=== PATIENT | female | born 1975 | race Two or more races ===

== ENCOUNTER 2017-12-16 17:50 | Emergency (ER) | payer OTHER ==
[2017-12-16 17:56] VITALS: BP 146/106
--- NOTE | 2017-12-16 18:22 | ED Physician Documentation ---
History of Present Illness - Stated complaint Stated Complaint: SOA/DIZZY/CARDIAC HX - Chief complaint Chief Complaint: Cardiac - History obtained from History obtained from: Patient - History of Present Illness Timing: How many days ago (3) Pain level max: 0 Pain level now: 0 Improved by: rest Worsened by: exertion - Additonal information Additional information: Patient is a 42-year-old female who presents to the emergency department with feelings of intermittent dyspnea for the past 3 days. No significant shortness of breath, but feeling that she just cannot take a deep breath at times. Has had chest tightness intermittently. States that she has had a constant slight pressure in the center of her chest for 3 days. Denies any nausea or vomiting. No recent travel. No recent surgery. Does not smoke. Is not on control. No history of blood clots in the family. Review of Systems Ten Systems: 10 systems reviewed and negative Constitutional: denies: Fever, Chills Ears: denies: Ear pain Nose: denies: Rhinorrhea / runny nose, Congestion Throat: denies: Sore throat Cardiac: denies: Palpitations Respiratory: denies: Cough, Hemoptysis, Wheezing GI: denies: Abdominal Pain, Nausea, Vomiting, Diarrhea : denies: Dysuria, Now EGA Skin: denies: Rash Musculoskeletal: denies: Neck pain, Back pain Neurologic: denies: Headache PD PAST MEDICAL HISTORY - Past Medical History Past Medical History: Yes Endocrine/Autoimmune: HyPOthyroidism Other Past Medical History: seasonal allergies, SVT - Past Surgical History Past Surgical History: Yes Cardiovascular: Other (ablation for SVT) - Present Medications Home Medications: Ambulatory Orders Medication Instructions Recorded Confirmed Levothyroxine [Synthroid] 25 mcg PO QDAC 12/16/17 12/16/17 Loratadine [Claritin] 12/16/17 Propranolol [Inderal] 10 mg PO BID 12/16/17 12/16/17 - Allergies Allergies/Adverse Reactions: Allergies Allergy/AdvReac Type Severity Reaction Status Date / Time Penicillins Allergy Hives Verified 12/16/17 17:56 - Living Situation Living Situation: reports: With family Living Arrangement: reports: At home PD ED PE NORMAL - Vitals Vital signs reviewed: Yes - General General: Alert and oriented X 3, No acute distress, Well developed/nourished - HEENT HEENT: PERRL, Moist mucous membranes, Pharynx benign - Neck Neck: Supple, no meningeal sign, No JVD, No bruit - Cardiac Cardiac: RRR, No murmur, Strong equal pulses - Respiratory Respiratory: No respiratory distress, Clear bilaterally - Abdomen Abdomen: Soft, Non tender, Non distended - Derm Derm: Warm and dry, No rash - Extremities Extremities: No edema, No calf tenderness / cord - Neuro Neuro: Alert and oriented X 3 - Psych Psych: Normal mood, Normal affect Results - Vitals Vitals: Vital Signs - 24 hr 12/16/17 12/16/17 17:54 19:22 Temperature 36.8 C Heart Rate 76 72 Respiratory 16 17 Rate Blood Pressure 146/106 H O2 Saturation 99 99 Oxygen O2 Source Room air - EKG (time done) 1803 Rate: Rate (enter#) (79) Rhythm: NSR Ward[place]: Normal Intervals: Normal [place] QRS: Normal Ischemia: Normal ST segments - Labs Labs: Laboratory Tests 12/16/17 12/16/17 12/16/17 18:46 18:46 18:46 WBC 8.4 RBC 4.70 Hgb 13.5 Hct 40.9 MCV 87.0 MCH 28.7 MCHC 33.0 RDW 13.9 Plt Count 323 MPV 7.9 Neut # (Auto) 5.3 Lymph # (Auto) 1.9 Chambers # (Auto) 0.9 Eos # (Auto) 0.2 Baso # (Auto) 0.1 Absolute Nucleated RBC 0.00 Nucleated RBC % 0.0 D-Dimer Sodium 136 Potassium 3.6 Chloride 104 Carbon Dioxide 25 Anion Gap 7.0 BUN 14 Creatinine 0.8 Estimated GFR (MDRD) 79 L Glucose 133 H Calcium 9.2 Total Bilirubin 0.4 AST 21 ALT 23 Alkaline Phosphatase 82 Troponin I < 0.04 Total Protein 7.3 Albumin 4.5 Globulin 2.8 Albumin/Globulin Ratio 1.6 Lipase 25 TSH Free T4 12/16/17 12/16/17 18:46 19:04 WBC RBC Hgb Hct MCV MCH MCHC RDW Plt Count MPV Neut # (Auto) Lymph # (Auto) Chambers # (Auto) Eos # (Auto) Baso # (Auto) Absolute Nucleated RBC Nucleated RBC % D-Dimer < 200.0 L Sodium Potassium Chloride Carbon Dioxide Anion Gap BUN Creatinine Estimated GFR (MDRD) Glucose Calcium Total Bilirubin AST ALT Alkaline Phosphatase Troponin I Total Protein Albumin Globulin Albumin/Globulin Ratio Lipase TSH 1.02 Free T4 1.09 - Rads (name of study) cxr Radiology: Prelim report reviewed, EMP read contemporaneously, See rad report ( normal) PD MEDICAL DECISION MAKING - ED course Complexity details: reviewed results, re-evaluated patient, considered differential (No ST elevation SC, no aortic dissection, no PE, no tension pneumothorax, no aortic aneurysm), d/w patient ED course: Patient is a 42-year-old female who presents to the emergency department with dyspnea and chest pressure for 3 days. Unclear etiology. No acute findings on EKG, telemetry, chest x-ray or blood work. No further symptoms in the emergency department. We will have her follow-up with her doctor for further evaluation and clear. Lungs continue to be clear to auscultation bilaterally. Patient counseled regarding signs and symptoms for which I believe and urgent re -evaluation would be necessary. Patient with good understanding of and agreement to plan and is comfortable going home at this time This document was made in part using voice recognition software. While efforts are made to proofread this document, sound alike and grammatical errors may occur. - Sepsis Event Vital Signs: Vital Signs - 24 hr 12/16/17 12/16/17 17:54 19:22 Temperature 36.8 C Heart Rate 76 72 Respiratory 16 17 Rate Blood Pressure 146/106 H O2 Saturation 99 99 Oxygen O2 Source Room air Departure - Departure Disposition: 01 Home, Self Care Clinical Impression: Dyspnea Qualifiers: Dyspnea type: unspecified Qualified Code(s): R06.00 - Dyspnea, unspecified Condition: Good Instructions: ED Dyspnea Shortness of Breath Follow-Up: ZULLY PRITCHETT [Primary Care Provider] - Within 1 week Comments: The cause of your symptoms is unclear today. Return if you worsen. Make sure to follow-up with your doctor for further care. Discharge Date/Time: 12/16/17 19:56
--- NOTE | 2017-12-16 18:43 | XRAY Report ---
Procedure Date: 12/16/2017 Accession Number: [id number] / [id number] Procedure: XR - Chest 1 View X-Ray CPT Code: 13625 FULL RESULT: EXAM: CHEST RADIOGRAPHY EXAM DATE: 12/16/2017 06:20 PM. CLINICAL HISTORY: Chest pain. COMPARISON: None. TECHNIQUE: 1 view. FINDINGS: Lungs/Pleura: No focal opacities evident. No pleural effusion. No pneumothorax. Mediastinum: Within exam limitations, the cardiomediastinal contour is normal. Other: No bony abnormality identified. IMPRESSION: Normal single view chest. RADIA
[2017-12-16 18:57] LABS: BASOPHILS # (AUTO) 0.1 10^3/uL (0.0-0.1); BASOPHILS % (AUTO) 1.1 %; EOSINOPHILS # (AUTO) 0.2 10^3/uL (0.0-0.7); EOSINOPHILS % (AUTO) 2.1 %; HGB - HEMOGLOBIN 13.5 g/dL (12.0-16.0); LYMPHOCYTES # (AUTO) 1.9 10^3/uL (1.5-3.5); LYMPHOCYTES % (AUTO) 22.6 %; MEAN CORPUSCULAR HEMOGLOBIN 28.7 pg (27.0-31.0); MEAN PLATELET VOLUME 7.9 fL (7.9-10.8); MONOCYTES # (AUTO) 0.9 10^3/uL (0.0-1.0); MONOCYTES % (AUTO) 10.5 %; NEUTROPHILS # (AUTO) 5.3 10^3/uL (1.5-6.6); NEUTROPHILS % (AUTO) 63.7 %; PLT - PLATELET COUNT 323 10^3/uL (130-450); RED CELL DISTRIBUTION WIDTH 13.9 % (12.0-15.0); WHITE BLOOD COUNT 8.4 x10^3/uL (4.8-10.8)
[2017-12-16 19:09] LABS: ALBUMIN 4.5 g/dL (3.2-5.5); ALBUMIN/GLOBULIN RATIO 1.6 (1.0-2.2); BILIRUBIN,TOTAL 0.4 mg/dL (0.2-1.0); CALCIUM 9.2 mg/dL (8.5-10.3); CREATININE 0.8 mg/dL (0.4-1.0); TOTAL PROTEIN 7.3 g/dL (6.7-8.2)
[2017-12-16 19:35] LABS: THYROID STIMULATING HORMONE 1.02 uIU/mL (0.34-5.60)
[2017-12-16 19:37] LABS: FREE T4 (FREE THYROXINE) 1.09 ng/dL (0.58-1.64)
== END 2017-12-16 19:56 | disposition home or self-care (01) ==
LOC: ED 17:50
DX: R06.00 Dyspnea, unspecified (principal); E03.9 Hypothyroidism, unspecified
CPT/HCPCS: 36415; 71045; 80053; 83690; 84439; 84443; 84484; 85025; 85379; 93005; 99283

== ENCOUNTER 2020-05-10 21:31 | Emergency (ER) | payer OTHER ==
--- NOTE | 2020-05-10 22:57 | ED Physician Documentation ---
PD HPI Fall - Stated complaint Stated Complaint: FALL - Chief complaint Chief Complaint: Trauma Ch/Bk - History obtained from History obtained from: Patient - History of Present Illness Mechanism of injury: Lost balance Fall distance: Standing position (standing on a chair) Where injury occurred: Home Timing - onset: Enter time (20:20), Today Injury(ies) location: Chest Pain level now: 5 Quality of pain: Pain Associated symptoms: No: LOC, AMS Symptoms improve with: Rest, Position Worsens with: Movement, Palpation Similar symptoms before: Has not had sx before Recently seen: Not recently seen - Additional information Additional information: patient was standing on a chair that tilted, causing patient to fall. This was at approximately 8:20 PM tonight. The chair backing struck patient in lower chest and her center/midline chest struck the table. She denies head injury, denies LOC. C/O pain at sternum that is worse with movement, palpation, deep inspiration. Review of Systems Cardiac: reports: Chest pain / pressure. 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 : None HEENT: None Psych: None Musculoskeletal: None Derm: None - Past Surgical History Past Surgical History: Yes Cardiovascular: Other - Present Medications Home Medications: Ambulatory Orders Medication Instructions Recorded Confirmed Butalb/Acetaminophen/Caffeine 1 each PO PRN PRN 05/10/20 05/10/20 [Fioricet 50-300-40 mg Capsule] Metoprolol Succinate [Toprol Xl] 50 mg PO DAILY 05/10/20 05/10/20 - Allergies Allergies/Adverse Reactions: Allergies Allergy/AdvReac Type Severity Reaction Status Date / Time Penicillins Allergy Hives Verified 05/10/20 21:34 - Social History Does the pt smoke?: No Smoking Status: Never smoker Does the pt drink ETOH?: Yes Does the pt have substance abuse?: No - POLST Patient has POLST: No PD ED PE NORMAL - Vitals Vital signs reviewed: Yes - General General: Alert and oriented X 3, No acute distress, Well developed/nourished - HEENT HEENT: Atraumatic - Cardiac Cardiac: RRR, No murmur, No gallop, No rub - Respiratory Respiratory: No respiratory distress, Clear bilaterally - Abdomen Abdomen: Soft, Non tender - Free text exam Free text exam: midline chest wall TTP without echymosis, swelling, crepitus, or obvious defor mity Results - Vitals Vitals: Vital Signs - 24 hr 05/10/20 05/10/20 05/11/20 21:34 22:25 00:11 Temperature 36.5 C Heart Rate 73 73 74 Respiratory 16 17 16 Rate Blood Pressure 153/92 H 140/89 H 144/90 H O2 Saturation 100 100 100 Oxygen O2 Source Room air - EKG (time done) No standard instances Rate: Rate (enter#) (74) Rhythm: NSR Mikana: Normal Intervals: Normal [place] QRS: Normal Ischemia: Normal ST segments Computer interpretation: Disagree with computer (normal sinus rhythm (not atrial fibrillation)) - Rads (name of study) cxr Radiology: Prelim report reviewed, See rad report sternum xrays Radiology: Prelim report reviewed, See rad report PD MEDICAL DECISION MAKING - ED course Complexity details: reviewed results, re-evaluated patient, considered differential, d/w patient Departure - Departure Disposition: 01 Home, Self Care Clinical Impression: Contusion of chest wall Qualifiers: Encounter type: initial encounter Laterality: unspecified laterality Qualified Code(s): S20.219A - Contusion of unspecified front wall of thorax, initial encounter Condition: Good Instructions: ED Contusion Chest Wall Follow-Up: MK MAYER DO [Primary Care Provider] - Forms: Activity restrictions
[2020-05-11 00:12] VITALS: BP 144/90
[2020-05-11] MEDS ORDERED: HYDROcod/ACET 5/325 Prepack 4 PO STA (00:55)
[2020-05-11] MEDS ORDERED: HYDROcod/ACET 5/325 Prepack 4 PO ONE (01:12)
--- NOTE | 2020-05-11 08:21 | XRAY Report ---
PROCEDURE: Sternum INDICATIONS: fall, pain and tenderness TECHNIQUE: 2 views of the sternum acquired. COMPARISON: None FINDINGS: Bones: No fractures or dislocations. No suspicious bony lesions. Soft tissues: Retrosternal soft tissues appear normal. IMPRESSION: No visualized acute fracture or dislocation. However, occult injury cannot be excluded. Recommend CT chest clinically indicated for additional evaluation. The above findings are concordant with preliminary report. Reviewed by: Charis Quach MD on 05/11/2020 8:20 AM [facility] Approved by: Charis Quach MD on 05/11/2020 8:20 AM PST Station ID: [id number]
--- NOTE | 2020-05-11 08:21 | XRAY Report ---
PROCEDURE: Chest 2 View X-Ray INDICATIONS: fall, pain and tenderness TECHNIQUE: 2 view(s) of the chest. COMPARISON: CT chest 12/17/2017 FINDINGS: Surgical changes and devices: None. Lungs and pleura: No pleural effusions or pneumothorax. Lungs are clear. Mediastinum: Mediastinal contours are normal. Heart size is normal. Bones and chest wall: No suspicious bony abnormalities. Soft tissues appear unremarkable. IMPRESSION: No acute pulmonary process. Reviewed by: Charis Quach MD on 05/11/2020 8:20 AM [facility] [[email or web address]] Approved by: Charis Quach MD on 05/11/2020 8:20 AM [facility] [[email or web address]] Station ID: [id number]
== END 2020-05-11 01:10 | disposition home or self-care (01) ==
LOC: ED 21:31
DX: S20.219A Contusion of unspecified front wall of thorax, initial encounter (principal); W07.XXXA Fall from chair, initial encounter; W22.8XXA Striking against or struck by other objects, initial encounter; Y93.89 Activity, other specified; Y92.009 Unspecified place in unspecified non-institutional (private) residence as the place of occurrence of the external cause; I10 Essential (primary) hypertension
CPT/HCPCS: 93005; 99282; 99283

== ENCOUNTER 2022-05-19 13:27 | Outpatient (CLI) | payer OTHER ==
--- NOTE | 2022-05-30 11:45 | Mammography Report ---
BILATERAL DIGITAL SCREENING MAMMOGRAM 3D/2D: 05/19/2022 CLINICAL: Routine screening. Comparison mammogram 05/25/2021. There are scattered areas of fibroglandular density in both breasts (category b / 25%-50% glandular t issue). No significant masses, calcifications, or other findings are seen in either breast. IMPRESSION: NEGATIVE There is no mammographic evidence of malignancy. A 1 year screening mammogram is recommended. Based on Tyrer-Cuzick model (a risk assessment model), the patient's lifetime risk is 27.7% and her 1 0 year risk is 9.0%. If a patient has an elevated risk, a more comprehensive evaluation should be con sidered and/or a referral to a genetic counselor. The [place] [employer], [employer], and NCCN Guidelines advise the consideration of Breast MRI as an adjunct to screening mammog everett in patients whose "Lifetime risk to develop breast cancer" is 20% or higher. This exam was interpreted at Station ID: [id number]. NOTE: For mammograms, a report in lay terms will be sent to the patient. Approximately 15% of breast malignancies will not be visualized mammographically. In the management of a palpable breast mass, a negative mammogram must not discourage biopsy of a clinically suspicious lesion. Electronically Signed By: Tariq Box M.D. slc/:05/30/2022 09:49:42 ACR BI-RADS Category 1: Negative 3341F PARENCHYMAL PATTERN: (A) - The breast(s) demonstrate(s) scattered fibroglandular densities. BI-RADS CATEGORY: (1) - 1 RECOMMENDATION: (ANNUAL) - Recommend routine annual screening mammography. [id number] 1 year screening LATERALITY: (B)
== END 2022-05-19 13:28 | disposition home or self-care (01) ==
LOC: DI.N 13:27
PROVIDERS: ATTEND Family Medicine
DX: Z12.31 Encounter for screening mammogram for malignant neoplasm of breast (principal)

== ENCOUNTER 2022-05-30 19:22 | Outpatient (CLI) | payer OTHER ==
[2022-05-30 19:39] LABS: BASOPHILS # (AUTO) 0.1 10^3/uL (0.0-0.1); BASOPHILS % (AUTO) 0.6 %; EOSINOPHILS # (AUTO) 0.2 10^3/uL (0.0-0.7); EOSINOPHILS % (AUTO) 1.1 %; HCT - HEMATOCRIT 43.3 % (37.0-47.0); HGB - HEMOGLOBIN 14.1 g/dL (12.0-16.0); LYMPHOCYTES # (AUTO) 1.4 10^3/uL (1.5-3.5); LYMPHOCYTES % (AUTO) 10.5 %; MEAN CORPUSCULAR HEMOGLOBIN 28.4 pg (27.0-31.0); MEAN CORPUSCULAR HGB CONC 32.6 g/dL (32.0-36.0); MEAN CORPUSCULAR VOLUME 87.1 fL (81.0-99.0); MEAN PLATELET VOLUME 8.9 fL (7.9-10.8); MONOCYTES # (AUTO) 0.8 10^3/uL (0.0-1.0); MONOCYTES % (AUTO) 5.8 %; NEUTROPHILS # (AUTO) 11.2 10^3/uL (1.5-6.6); NEUTROPHILS % (AUTO) 81.7 %; PLT - PLATELET COUNT 312 10^3/uL (130-450); RED BLOOD COUNT 4.97 10^6/uL (4.20-5.40); RED CELL DISTRIBUTION WIDTH 12.9 % (12.0-15.0); WHITE BLOOD COUNT 13.7 x10^3/uL (4.8-10.8)
[2022-05-30 19:48] LABS: ALBUMIN 4.6 g/dL (3.2-5.5); ALBUMIN/GLOBULIN RATIO 1.5 (1.0-2.2); BILIRUBIN,TOTAL 0.4 mg/dL (0.2-1.0); CALCIUM 9.4 mg/dL (8.5-10.3); CREATININE 0.8 mg/dL (0.4-1.0); POTASSIUM 3.8 mmol/L (3.5-5.0); TOTAL PROTEIN 7.6 g/dL (6.7-8.2)
== END 2022-05-30 19:23 | disposition home or self-care (01) ==
LOC: LAB 19:22
PROVIDERS: ATTEND Registered Nurse
DX: I10 Essential (primary) hypertension (principal); R00.2 Palpitations; R10.9 Unspecified abdominal pain
CPT/HCPCS: 36415; 80053; 85025

== ENCOUNTER 2022-10-12 15:41 | Outpatient (CLI) | payer OTHER ==
--- NOTE | 2022-10-12 19:15 | MRI Report ---
PROCEDURE: CERVICAL SPINE WO INDICATIONS: HEADACHES AND NECK PAIN TECHNIQUE: Noncontrast sagittal T1 spin echo and T2 fast spin echo, sagittal STIR, foraminal oblique sagittal T2 fast spin echo, and axial gradient echo or T2 fast spin echo through the cervical spine. COMPARISON: None. FINDINGS: Image quality: Excellent. Alignment and Curvature: There is trace retrolisthesis of C4 on C5, C5 on C6. Bone Marrow: Marrow demonstrates normal overall signal. Spinal Cord: Visualized spinal cord has normal size and signal. No cerebellar tonsillar herniation. Paraspinous Soft Tissues: No paravertebral masses. Prevertebral soft tissues are normal in thicknes s. C2-C3: Minimal disc bulge or spinal stenosis or foraminal narrowing. C3-C4: Mild disc bulge with effacement anterior thecal sac. No foraminal narrowing. C4-C5: Mild disc bulge with prominent posterior left posterior paracentral protrusion causing modera te to severe spinal stenosis as well as indentation of the anterior cord. It is causing moderate comp romise of the left lateral recess. Mild to moderate bilateral foraminal narrowing. C5-C6: Mild disc bulge with posterior protrusion causing moderate spinal stenosis. Moderate bilatera l foraminal narrowing.. C6-C7: Mild disc bulge with small posterior central protrusion with indentation of the anterior thec al sac. No foraminal narrowing. C7-T1: No disc bulge, spinal stenosis or foraminal narrowing. IMPRESSION: Multilevel disc bulge with prominent protrusions most notable at C4-5 causing compromise of the left lateral recess. Multilevel foraminal narrowing most notable at C5-6 with secondary to uncovertebral arthropathy. Multilevel spinal stenosis most severe at C4-5 and C5-6 secondary to protrusions. Reviewed by: Charis Quach MD on 10/12/2022 7:14 PM PDT Approved by: Charis Quach MD on 10/12/2022 7:14 PM PDT Station ID: [id number]
== END 2022-10-12 15:42 | disposition home or self-care (01) ==
LOC: DI 15:41
PROVIDERS: ATTEND Psychiatry & Neurology Neurology
DX: M47.812 Spondylosis without myelopathy or radiculopathy, cervical region (principal); M50.31 Other cervical disc degeneration, high cervical region; M48.02 Spinal stenosis, cervical region; M50.221 Other cervical disc displacement at C4-C5 level

== ENCOUNTER 2023-02-20 19:27 | Outpatient (CLI) | payer OTHER ==
--- NOTE | 2023-02-22 09:15 | Ultrasound Report ---
PROCEDURE: Pelvic w/Transvaginal INDICATIONS: AUB TECHNIQUE: Real-time scanning was performed of the pelvic organs, with image documentation. Additional endovagi nal scanning was necessary due to incomplete visualization of the adnexal and endometrial structures by transabdominal scanning. COMPARISON: None. FINDINGS: Uterus: Uterus is anteverted and normal in size at 10.5 x 5.3 x 6.7 cm. The myometrium is heterogen eous. The endometrium measures 4.7 mm in combined thickness. There is an IUD within the uterine cav ity. Ovaries: The right ovary measures 2.4 x 1.2 x 1.3 cm, with a calculated ovarian volume of 1.9 cc. T he left ovary measures 3.5 x 1.4 x 3.6 cm, with a calculated ovarian volume of 9.5 cc. The ovaries h ave a normal sonographic appearance. Less than 12 follicles can be seen in each ovary. No adnexal m asses are seen. There is a 1.9 cm cyst in left ovary, compatible with a dominant follicle. Other: No pathologic free abdominal or pelvic fluid. IMPRESSION: 1. There is an IUD in uterine cavity. A cause for abnormal uterine bleeding is not identified. Reviewed by: Renetta Stark MD on 02/22/2023 9:13 AM PDT Approved by: Renetta Stark MD on 02/22/2023 9:13 AM PDT Station ID: [id number]
== END 2023-02-20 19:28 | disposition home or self-care (01) ==
LOC: DI 19:27
PROVIDERS: ATTEND Obstetrics & Gynecology
DX: N93.9 Abnormal uterine and vaginal bleeding, unspecified (principal)

== ENCOUNTER 2023-04-29 08:18 | Outpatient (CLI) | payer OTHER ==
--- NOTE | 2023-05-01 08:02 | MRI Report ---
PROCEDURE: LUMBAR SPINE WO INDICATIONS: RIGHT LEG WEAKNESS, LOW BACK PAIN TECHNIQUE: Noncontrast sagittal T1 spin echo and T2 fast echo, sagittal STIR, axial T1 and T2 fast spin echo thr ough the lumbar spine. In cases with scoliosis, additional coronal T2 fast spin echo may be performe d. COMPARISON: None. FINDINGS: Image quality: Excellent. Alignment and Curvature: Trace retrolisthesis of L5 on S1. Trace anterolisthesis of L4 on L5. Bone Marrow: Marrow is of normal overall signal. No acute vertebral body compression fractures. Spinal Cord: Conus medullaris terminates at the L1-L2 level. Visualized cord demonstrates normal si gnal and size. Paraspinous Soft Tissues: No paravertebral masses. T12-L1: Normal in appearance. L1-L2: Facet hypertrophy. No canal stenosis or foraminal stenosis. L2-L3: Short pedicles. Facet hypertrophy. Moderate canal stenosis. No foraminal stenosis. L3-L4: Short pedicles. Disc bulge. Facet hypertrophy. Severe canal stenosis. Moderate to severe rig ht foraminal narrowing with a mild degree of right foraminal L3 nerve root impingement. Mild to moder ate left foraminal narrowing. L4-L5: Short pedicles. Disc bulge. Prominent facet hypertrophy. Severe canal stenosis. Mild to mode rate bilateral foraminal stenosis. L5-S1: Short pedicles. Trace retrolisthesis of L5 on S1. Disc bulge. Facet hypertrophy. Mild to mod erate canal stenosis. Moderate to severe right foraminal narrowing with a degree of right foraminal L 5 nerve root impingement. Moderate left foraminal narrowing with flattening deformity on the exiting left L5 nerve root. IMPRESSION: 1. 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 2. Canal stenosis is moderate at L2-L3, severe at L3-L4, severe at L4-L5, and mild to moderate at L5- S1. 3. Multilevel foraminal narrowing as described above. Findings include moderate to severe right yordan inal narrowing at L3-L4 and L5-S1. Reviewed by: Nav Astorga MD on 05/01/2023 8:00 AM PST Approved by: Nav Astorga MD on 05/01/2023 8:00 AM PST Station ID: [id number]
== END 2023-04-29 08:19 | disposition home or self-care (01) ==
LOC: DI 08:18
PROVIDERS: ATTEND Psychiatry & Neurology Neurology
DX: M47.816 Spondylosis without myelopathy or radiculopathy, lumbar region (principal); M47.817 Spondylosis without myelopathy or radiculopathy, lumbosacral region; M48.061 Spinal stenosis, lumbar region without neurogenic claudication; M48.07 Spinal stenosis, lumbosacral region

== ENCOUNTER 2023-06-19 13:28 | Outpatient (CLI) | payer OTHER ==
--- NOTE | 2023-06-20 10:41 | Mammography Report ---
BILATERAL DIGITAL SCREENING MAMMOGRAM 3D/2D: 06/19/2023 CLINICAL: Routine screening. Comparison is made to exams dated: 05/19/2022 mammogram - [facility] and 05/25/2021 mammogram - [facility]. There are scattered areas of fibroglandular density in both breasts (category b / 25%-50% glandular t issue). No significant masses, calcifications, or other findings are seen in either breast. There has been no significant interval change. IMPRESSION: NEGATIVE There is no mammographic evidence of malignancy. A 1 year screening mammogram is recommended. Based on Tyrer-Cuzick model (a risk assessment model), the patient's lifetime risk is 28.4% and her 1 0 year risk is 9.2%. If a patient has an elevated risk, a more comprehensive evaluation should be con sidered and/or a referral to a genetic counselor. The [employer], [employer], and NCCN Guidelines advise the consideration of Breast MRI as an adjunct to screening mammog everett in patients whose "Lifetime risk to develop breast cancer" is 20% or higher. This exam was interpreted at Station ID: [id number]. NOTE: For mammograms, a report in lay terms will be sent to the patient. Approximately 15% of breast malignancies will not be visualized mammographically. In the management of a palpable breast mass, a negative mammogram must not discourage biopsy of a clinically suspicious lesion. Electronically Signed By: Vidhi hess/tierney:06/19/2023 17:17:51 letter sent: No_Letter ACR BI-RADS Category 1: Negative 3341F PARENCHYMAL PATTERN: (A) - The breast(s) demonstrate(s) scattered fibroglandular densities. BI-RADS CATEGORY: (1) - 1 Mammogram [id number] 1 year screening LATERALITY: (B)
== END 2023-06-19 13:29 | disposition home or self-care (01) ==
LOC: DI.N 13:28
PROVIDERS: ATTEND Family Medicine
DX: Z12.31 Encounter for screening mammogram for malignant neoplasm of breast (principal); R92.323 Mammographic fibroglandular density, bilateral breasts